=== PATIENT | male | born 1990 | race Caucasian/White ===

== ENCOUNTER 2022-09-11 21:11 | Emergency (ER) | payer SELFPAY ==
[~2022-09-11] VITALS: Ht 175.3 cm; Wt 99.8 kg
--- NOTE | 2022-09-11 21:35 | NUR ---
bibgf, c/o R knee pain s/p fall from snowboarding, no loc 10/10 pain scale took percocet 5/325 mg around 3:15pm.
[2022-09-11] MEDS ORDERED: oxyCODONE/APAP (5/325 MG) 1 UDTAB TABLET PO ONE (22:00)
[2022-09-11] MEDS ORDERED: KETOROLAC TROMETHAMINE INJ 60 MG/2 ML VIAL IM ONE (22:00)
[2022-09-11] MEDS ORDERED: KETOROLAC TROMETHAMINE INJ 30 MG/ML VIAL ONE (22:14)
[2022-09-11] MEDS ORDERED: oxyCODONE/APAP (5/325 MG) 1 UDTAB TABLET ONE (22:14)
[2022-09-11] MEDS ORDERED: IBUP-1955 PO ×2 (22:35→23:17)
[2022-09-11] MEDS ORDERED: OXYC-132 PO ×2 (22:35→23:17)
--- NOTE | 2022-09-11 22:53 | NUR ---
Patient discharged to home in stable condition. Written and verbal after care instructions given. Patient verbalizes understanding of instruction.
[2022-09-11 22:55] VITALS: BP 120/75
== END 2022-09-11 22:50 | disposition home or self-care (01) ==
LOC: ER 21:28
DX: M25.461 Effusion, right knee (principal); Z79.899 Other long term (current) drug therapy
CPT/HCPCS: 99283; 96372; 73564; J1885